=== PATIENT | male | born 1960 | race Two or more races ===

== ENCOUNTER 2020-09-09 11:23 | Emergency (ER) | payer SELFPAY ==
[~2020-09-09] VITALS: Ht 165.1 cm; Wt 68.5 kg
--- NOTE | 2020-09-09 11:30 | NUR ---
LUCIANA RODRÍGUEZ 89 FROM HOME,C/O NAUSEA,HEADACHE AND BODY PAIN X 2 DAYS. IV ACCESS STARTED BLOOD DRAW DONE SENT TO LAB. SEEN BY
[2020-09-09] MEDS ORDERED: diphenhydrAMINE HCL 50 MG/ML VIAL ONE (11:34)
[2020-09-09] MEDS ORDERED: diphenhydrAMINE HCL ELIX 25 MG/10 ML UDC ONE (11:34)
[2020-09-09] MEDS ORDERED: METOCLOPRAMIDE HCL 10 MG/2 ML VIAL ONE (11:34)
[2020-09-09] MEDS ORDERED: KETOROLAC TROMETHAMINE 15 MG/ML VIAL ONE (11:34)
[2020-09-09] MEDS: METOCLOPRAMIDE HCL 10 MG/2 ML VIAL IV ONE (11:45)
[2020-09-09] MEDS: diphenhydrAMINE HCL 50 MG/ML VIAL IV ONE (11:45)
[2020-09-09] MEDS: IV NS 0.9% 1,000 ML BAG IV ONE (11:45)
[2020-09-09] MEDS: KETOROLAC TROMETHAMINE INJ 30 MG/ML VIAL IV ONE (11:45)
[2020-09-09 12:06] LABS: NEUTROPHILS # (AUTO) 7.7 /CMM (1.8-8.9)
[2020-09-09 12:10] LABS: BASOPHILS % (AUTO) 0.6 % (0.0-2.0); EOSINOPHILS % (AUTO) 0.5 % (0.0-6.0); HEMATOCRIT 35 % (39-51); HEMOGLOBIN 11.4 g/dL (13.5-17.5); LYMPHOCYTES # (AUTO) 0.2 /CMM (0.8-4.8); LYMPHOCYTES % (AUTO) 2.6 % (20.0-44.0); MEAN CORPUSCULAR HGB CONC 33 g/dl (31.0-36.0); MEAN CORPUSCULAR VOLUME 81 fL (80-96); MONOCYTES # (AUTO) 0.4 /CMM (0.1-1.30); MONOCYTES % (AUTO) 4.6 % (2.0-12.0); NEUTROPHILS % (AUTO) 91.7 % (43.0-81.0); PLATELET COUNT (AUTO) 190 /CMM (150-450); RED BLOOD CELL COUNT(AUTO) 4.32 MIL/uL (4.5-6.0); WHITE BLOOD COUNT (AUTO) 8.4 K/uL (4.3-11.0)
[2020-09-09 12:12] LABS: CALCIUM, SERUM 8.3 mg/dL (8.5-10.1); CARBON DIOXIDE 30 mmol/L (21-32); CHLORIDE 98 mmol/L (98-107); CREATININE 0.9 mg/dL (0.6-1.3); GLUCOSE 124 mg/dL (74-106); POTASSIUM 3.6 mmol/L (3.5-5.1); SODIUM SERUM 138 mmol/L (136-145); UREA NITROGEN, BLOOD 11 mg/dL (7-18)
--- NOTE | 2020-09-09 13:47 | NUR ---
Patient discharged to home in stable condition. Written and verbal after care instructions given. Patient verbalizes understanding of instruction. IV removed. Catheter intact and site benign. Pressure and 4x4 applied to site. No bleeding noted.
--- NOTE | 2020-09-09 13:47 | NUR ---
covid swab done sent to lab
[2020-09-09 13:49] VITALS: BP 138/87
== END 2020-09-09 13:49 | disposition home or self-care (01) ==
LOC: ER 11:27
DX: R11.2 Nausea with vomiting, unspecified (principal); R51.9 Headache, unspecified; M79.10 Myalgia, unspecified site; Z20.828 Contact with and (suspected) exposure to other viral communicable diseases; J98.11 Atelectasis; Z91.018 Allergy to other foods; R00.0 Tachycardia, unspecified; I25.2 Old myocardial infarction
CPT/HCPCS: 36415; 71045; 80048; 82962; 84484; 85025; 93005; 96361; 96374; 96375; 99285; C9803; J1200; J1885; J2765; J7030; Q0163; U0003